=== PATIENT | male | born 1965 | race Caucasian/White ===

== ENCOUNTER → 2017-06-10 | Outpatient (CLI) | payer BC | LOC: GMAJ 14:47 | PROVIDERS: ATTEND Family Medicine | DX: Z00.00 Encounter for general adult medical examination without abnormal findings (principal); E78.2 Mixed hyperlipidemia; E11.9 Type 2 diabetes mellitus without complications ==

== ENCOUNTER → 2018-05-08 | Outpatient (CLI) | payer BC ==
--- NOTE | 2018-05-09 07:25 | RAD ---
EXAM: Hand,Left 3 Views CLINICAL HISTORY: M79.642, M79.641. TECHNIQUE: AP, lateral and oblique images of the left hand. COMPARISON STUDY: None FINDINGS: Osteoarthritic changes are present at the articulation between the trapezium and first metacarpal. There is mild joint space loss, periarticular osteophytic changes and subchondral sclerosis. There are mild osteoarthritic changes between the scaphoid and trapezium. No fracture or dislocation identified. IMPRESSION: Mild osteoarthritic changes of the lateral carpal row. Electronically signed by: Avery Abarca MD 05/09/2018 7:22 AM CDT
--- NOTE | 2018-05-09 07:27 | RAD ---
EXAM: Hand,Right 3 Views CLINICAL HISTORY: M79.642, M79.641. TECHNIQUE: AP, lateral and oblique images of the right hand. COMPARISON STUDY: None FINDINGS: Osteoarthritic changes are present at the articulation between the trapezium and first metacarpal. There is mild joint space loss, periarticular osteophytic changes and subchondral sclerosis. There are mild osteoarthritic changes between the scaphoid and trapezium. No acute fracture or dislocation identified. The appearance of the ulnar styloid suggestive. Distant fracture. IMPRESSION: Mild osteoarthritic changes of the lateral carpal row. Old ulnar styloid fracture. Electronically signed by: Avery Abarca MD 05/09/2018 7:24 AM CDT
== END ==
LOC: RAD 07:41
PROVIDERS: ATTEND Orthopaedic Surgery
DX: M19.041 Primary osteoarthritis, right hand (principal); M19.042 Primary osteoarthritis, left hand